=== PATIENT | male | born 1990 | race Caucasian/White ===

== ENCOUNTER 2019-05-25 14:15 | Emergency (ER) | payer OTHER ==
[2019-05-25 14:21] VITALS: BP 126/71
--- NOTE | 2019-05-25 14:26 | ER Document Report ---
HPI - HPI Time Seen by Provider: 05/25/19 14:22 Pain Level: Denies Notes: Patient is a 29-year-old male with a history of adjustment disorder and PTSD who presents for medication refill of his Wellbutrin. Patient is in the [employer] and is moving at the end of the month. Is listed family provider is in [place] and [place] medication. Patient states the medication works really well for him and he has been tolerating it without any side effects to note. He has not had any visual or auditory hallucinations. No SI/HI. Denies drug allergies. He has been able to eat and drink without difficulty. He is urinating normally and having normal bowel movements. Denies any headache, fever, head injury, neck pain, changes in vision/speech/mentation/hearing, URI, sore throat, chest pain, palpitations, syncope, cough, shortness of breath, wheeze, dyspnea, abdominal pain, nausea/vomiting/diarrhea, urinary retention, dysuria, hematuria, loss of control of bowel or bladder, numbness/tingling, saddle anesthesia, muscle paralysis/weakness, or rash. - ROS Systems Reviewed and Negative: Yes All other systems reviewed and negative Past Medical History - Social History Smoking Status: Unknown if Ever Smoked Family History: Reviewed & Not Pertinent Vertical Provider Document - CONSTITUTIONAL Agree With Documented VS: Yes Notes: PHYSICAL EXAMINATION: GENERAL: Well-appearing, well-nourished and in no acute distress. Answers questions appropriately. HEAD: Atraumatic, normocephalic. EYES: Pupils equal round and reactive to light, extraocular movements intact, sclera anicteric, conjunctiva are normal. ENT: Nares patent and without discharge. oropharynx clear without exudates. No tonsilar hypertrophy or erythema. Moist mucous membranes. NECK: Normal range of motion, supple without lymphadenopathy LUNGS: Breath sounds clear to auscultation bilaterally and equal. No wheezes rales or rhonchi. HEART: Regular rate and rhythm without murmurs, rubs, gallops. Musculoskeletal: FROM to passive/active. Strength 5+/5. Extremities: No cyanosis, clubbing, or edema b/l. Peripheral pulses 2+. Capillary refill less than 3 seconds. NEUROLOGICAL: Cranial nerves grossly intact. Normal speech, normal gait. Normal sensory, motor exams PSYCH: Normal mood, normal affect. SKIN: Warm, Dry, normal turgor, no rashes or lesions noted. - INFECTION CONTROL TRAVEL OUTSIDE OF THE [place] IN LAST 30 DAYS: No Course - Re-evaluation Re-evalutation: 05/25/19 14:27 Patient is an afebrile, well-hydrated, 29-year-old male who presents for medication refill. Vitals are acceptable without significant tachycardia, tachypnea, or hypoxia. PE is otherwise unremarkable. Patient has reportedly been able to tolerate this medication without any difficulties and works well for him. He is being assigned out of state pain is unable to get his medication refilled. They are moving at the end of the month. No work-up warranted at this time. Patient is nontoxic-appearing is able to tolerate p.o. without difficulty. Low suspicion for any systemic or other emergent condition at this time. Recheck with the PCM upon moving. Return to the ED with any other worsening/concerning symptoms. Patient is in agreement. No SI/HI. - Vital Signs Vital signs: Temp Pulse Resp BP Pulse Ox 98.1 F 71 18 126/71 H 99 05/25/19 14:20 05/25/19 14:20 05/25/19 14:20 05/25/19 14:20 05/25/19 14:20 Discharge - Discharge Clinical Impression: Medication refill Condition: Stable Disposition: HOME, SELF-CARE Additional Instructions: Maintain adequate fluid and food intake Monitor for any worsening symptoms Make sure you are staying hydrated enough to urinate and have normal BM's Recheck with your PCM when able Return to the ED with any worsening symptoms and/or development of fever, headache, chest pain, palpitations, syncope, shortness of breath, trouble breathing, abdominal pain, n/v/d, blood in stool/urine, weakness, or other worsening symptoms that are concerning to you. Prescriptions: Bupropion HCl [Wellbutrin Xl 150 mg 24hr Tablet] 1 tab PO DAILY #30 tab.sr.24h Forms: Elevated Blood Pressure
== END 2019-05-25 14:30 | disposition home or self-care (01) ==
LOC: ER 14:15
DX: F43.10 Post-traumatic stress disorder, unspecified (principal); F43.20 Adjustment disorder, unspecified
CPT/HCPCS: 99281